=== PATIENT | male | born 1960 | race Caucasian/White ===

== ENCOUNTER 2020-05-06 04:47 | Outpatient (CLI) | payer BC, SELFPAY ==
[2020-05-08 09:12] LABS: SARS-CoV-2 RNA Not Detected (NotDetected); SARS-CoV-2 RNA Source Nasal/Nares
== END 2020-05-06 05:07 ==
PROVIDERS: Visit Provider Family Medicine Adult Medicine
DX: Z01.818 Encounter for other preprocedural examination (principal); Z11.59 Encounter for screening for other viral diseases
CPT/HCPCS: U0003

== ENCOUNTER 2024-03-11 07:19 | Outpatient (CLI) | payer MEDICARE, SELFPAY ==
[2024-03-11 07:39] VITALS: BP 120/71; PULSE 54; RESP 20; TEMP 36.8; O2SAT 96
[2024-03-11 08:05] VITALS: PULSE 57; O2SAT 94
[2024-03-11 08:08] VITALS: BP 159/83; PULSE 55; PULSE 56; RESP 16; O2SAT 97
[2024-03-11 08:10] VITALS: PULSE 58; RESP 17; O2SAT 94
[2024-03-11 08:16] VITALS: BP 151/93; PULSE 52; PULSE 59; RESP 18; O2SAT 96
[2024-03-11 08:20] VITALS: PULSE 53; RESP 16; O2SAT 96
--- NOTE | 2024-03-11 08:27 | PDOC.PAIN ---
Date of service: 03/11/24 Time of Service: 08:27 Pain Managment Procedure Note Procedure Note Procedure Note: PROCEDURE NOTE Bilateral Lumbar Medial Branch Blocks Date of Service: March 11, 2024 Patient: RAYNE FUENTES Provider: Tomasa Diop DO, MPH RAYNE Keo FUENTES has been [facility] for lumbar medial branch blocks. Pre-operative diagnosis: Lumbar Spondylosis without Myelopathy ICD-10 M47.816 Post-operative diagnosis: Same Pre-procedure pain: VAS= 7/10 COMMENTS: I previously evaluated him in the office and his pain is the same. ANITA was interviewed and the medical records were reviewed. There were no medical, pharmacologic, radiographic or other structural contraindications to attempting fluoroscopically guided local anesthetic lumbar medial branch blocks. Risks and potential side effects were discussed. I also discussed the potential benefit(s) of the procedure with RAYNE, and voiced concerns were addressed. After RAYNE was completely informed about the procedure, the printed consent form was signed. A standard time-out procedure was performed. RAYNE was placed in the prone position on the fluoroscopy table. Automated blood pressure cuff and pulse oximeter were applied. The skin entry points for approaching the anatomic target points of the segmental medial branches of bilateral L3,L4,L5 were identified with fluoroscopy and marked. The skin at the target site area was thoroughly prepared with Chlorhexadine. The skin was then draped. Next, a 25 gauge 3.5 spinal needle was placed under fluoroscopic guidance down on to the target point (the articular pillar) for each respective segmental medial branch. Position was confirmed in A/P and lateral views. Aspiration revealed no blood or clear fluid. Next, 0.25ml of omnipaque 240 was injected at each level. No contrast following a vascular or neural pattern was visualized under continuous fluoroscopy. Next, 0.25 ml of preservative-free 0.5% bupivicaine was injected at each level. There was no unusual discomfort expressed by RAYNE. The needles were withdrawn without difficulty. (49 mls of Omnipaque was wasted) RAYNE was observed and was without hemodynamic, neurologic, or allergic reactions.? Fluoroscopic images were digitally archived. Provacative testing using the Modified Garcia's facet loading test- Left side Right Side Directly before the block VAS (0-10) = 7/10 VAS (0-10) = 7/10 Five minutes after the block VAS (0-10) = 0/10 VAS (0-10) = 0/10 Percentage relief obtained with this diagnostic block 100% 100% Any improved physical functioning directly after the blocks? Able to move his back without pain. Follow up plans and appointments were discussed with RAYNE. RAYNE was instructed to keep careful note of how the usual pain was modified by these injections. Specifically, to keep a pain diary for the next 4 hours using a numeric pain scale of 0-10 and report these results. Post procedure instruction was given as documented in the nursing documentation and having met discharge criteria, the patient was [facility]. Based on the medial branches blocked today, if they patient has adequate relief and we are able to proceed to radiofrequency ablation, the treatment should result in the denervation of the bilateral L4-L5 and L5-S1 facet joints. We would expect to denervate a total of 4 facets during the radiofrequency ablation. COMMENTS: No apparent complications. Post-procedure pain: VAS= 0/10 RAYNE will call back with 0-4 hour post-procedure pain scores. I personally performed the entire procedure. TOMASA DIOP DO, MPH ABPM&R-subspecialty board certification in Pain Medicine [facility] [facility]
--- NOTE | 2024-03-11 08:29 | DI.RAD_ITS ---
Exam(s) XR PAIN CLINIC LUMBAR SP 2V EXAM: XR PAIN CLINIC LUMBAR SP 2V CLINICAL HISTORY: DX: Lumbar Spondylosis TECHNIQUE: 2D and realtime digital imaging was performed. CONTRAST MATERIAL: Refer to procedure report. COMPARISON: No exams were available for comparison FINDINGS: Fluoroscopy was provided for Dr. Diop during the performance of a lumbar medial branch block. Roma frederick refer to the procedure report for complete details. Ka,r=17.8 mGy IMPRESSION: RADIATION DOSE DELIVERED: 0.0 0.0 0
[2024-03-11] MEDS: Bupivacaine 0.5% Pres-Free 10 ML VIAL IJ (08:33)
[2024-03-11] MEDS: Nerve Block Tray 1 EACH MC (08:33)
[2024-03-11] MEDS: Omnipaque 240 MG/ML 50 ML BTL IJ (08:33)
== END 2024-03-11 07:20 | disposition home or self-care (01) ==
PROVIDERS: PCP Family Medicine Adult Medicine; Visit Provider Preventive Medicine Occupational Medicine
DX: M54.50 Low back pain, unspecified (principal); M47.816 Spondylosis without myelopathy or radiculopathy, lumbar region
CPT/HCPCS: 64493; 64494; 72100; J0665; Q9967

== ENCOUNTER 2024-03-25 07:39 | Outpatient (CLI) | payer MEDICARE, SELFPAY ==
[2024-03-25] VITALS (8 sets, daily range): BP systolic 136–148; BP diastolic 76–88; PULSE 55–64; RESP 17–21; TEMP 36.3; O2SAT 96–98
--- NOTE | 2024-03-25 06:00 | DI.RAD_ITS ---
Exam(s) XR PAIN CLINIC LUMBAR SP 2V EXAM: XR PAIN CLINIC LUMBAR SP 2V CLINICAL HISTORY: DX: Lumbar Spondylosis TECHNIQUE: 2D and realtime digital imaging was performed. CONTRAST MATERIAL: Refer to procedure report. COMPARISON: No exams were available for comparison FINDINGS: Fluoroscopy was provided for Dr. Diop during the performance of a lumbar medial branch block. Roma frederick refer to the procedure report for complete details. Ka,r=17.3 mGy IMPRESSION: RADIATION DOSE DELIVERED: 0.0 0.0 0
--- NOTE | 2024-03-25 08:41 | PDOC.PAIN_ITS ---
Date of service: 03/25/24 Time of Service: 08:41 Pain Managment Procedure Note Procedure Note Procedure Note: PROCEDURE NOTE Bilateral Lumbar Medial Branch Blocks Date of Service: March 25, 2024 Patient: RAYNE FUENTES Provider: Tee Cage DO, MPH RAYNE Crowley GINA has been referred to the [facility] for lumbar medial branch blocks. Pre-operative diagnosis: Lumbar Spondylosis without Myelopathy ICD-10 M47.816 Post-operative diagnosis: Same Pre-procedure pain: VAS= 6-7/10 to the low back with activity COMMENTS: he did do very well with the first LMBB RAYNE? was interviewed and the medical records were reviewed. There were no medical, pharmacologic, radiographic or other structural contraindications to attempting fluoroscopically guided local anesthetic lumbar medial branch blocks. Risks and potential side effects were discussed. I also discussed the potential benefit(s) of the procedure with RAYNE, and voiced concerns were addressed. After RAYNE was completely informed about the procedure, the printed consent form was signed. A standard time-out procedure was performed. RAYNE was placed in the prone position on the fluoroscopy table. Automated blood pressure cuff and pulse oximeter were applied. The skin entry points for approaching the anatomic target points of the segmental medial branches of bilateral L3,L4,L5 were identified with fluoroscopy and marked. The skin at the target site area was thoroughly prepared with Chlorhexadine. The skin was then draped. Next, a 25 gauge 3.5 spinal needle was placed under fluoroscopic guidance down on to the target point (the articular pillar) for each respective segmental medial branch. Position was confirmed in A/P and lateral views. Aspiration revealed no blood or clear fluid. Next, 0.25ml of omnipaque 240 was injected at each level. No contrast following a vascular or neural pattern was visualized under continuous fluoroscopy. Next, 0.25 ml of preservative-free 0.5% bupivicaine was injected at each level. There was no unusual discomfort expressed by RAYNE. The needles were withdrawn without difficulty. (49 mls of Omnipaque was wasted) RAYNE was observed and was without hemodynamic, neurologic, or allergic reactions.? Fluoroscopic images were digitally archived. Provacative testing using the Modified Garcia's facet loading test- Left side Right Side Directly before the block VAS (0-10) = 7/10 VAS (0-10) = 7/10 Five minutes after the block VAS (0-10) = 0/10 VAS (0-10) = 0/10 Percentage relief obtained with this diagnostic block 100% 100% Any improved physical functioning directly after the blocks? Able to move his back in all directions without pain. Follow up plans and appointments were discussed with RAYNE. RAYNE was instructed to keep careful note of how the usual pain was modified by these injections. Specifically, to keep a pain diary for the next 4 hours using a numeric pain scale of 0-10 and report these results. Post procedure instruction was given as documented in the nursing documentation and having met discharge criteria, the patient was [facility] from the [facility]. Based on the medial branches blocked today, if they patient has adequate relief and we are able to proceed to radiofrequency ablation, the treatment should result in the denervation of the bilateral L4-L5 and L5-S1 facet joints. We would expect to denervate a total of 4 facets during the radiofrequency ablation. COMMENTS: No apparent complications. Post-procedure pain: VAS= 0/10 RAYNE will call back with 0-4 hour post-procedure pain scores. I personally performed the entire procedure. TEE CAGE DO, MPH ABPM&R-subspecialty board certification in Pain Medicine [facility] [facility]
[2024-03-25] MEDS: Nerve Block Tray 1 EACH MC (08:42)
[2024-03-25] MEDS: Omnipaque 240 MG/ML 50 ML BTL IJ (08:42)
[2024-03-25] MEDS: Bupivacaine 0.5% Pres-Free 10 ML VIAL IJ (08:42)
== END 2024-03-25 07:40 | disposition home or self-care (01) ==
LOC: PC 07:39
PROVIDERS: PCP Family Medicine Adult Medicine; Visit Provider Preventive Medicine Occupational Medicine
DX: M54.50 Low back pain, unspecified (principal); M47.816 Spondylosis without myelopathy or radiculopathy, lumbar region
CPT/HCPCS: 64493; 64494; 72100; J0665; Q9967

== ENCOUNTER 2024-06-16 07:33 | Outpatient (CLI) | payer MEDICARE, SELFPAY ==
[2024-06-16] VITALS (13 sets, daily range): BP systolic 127–150; BP diastolic 64–95; PULSE 56–67; RESP 12–21; TEMP 36.7; O2SAT 91–99
--- NOTE | 2024-06-16 06:00 | DI.RAD_ITS ---
Exam(s) XR PAIN CLINIC LUMBAR SP 2V EXAM: XR PAIN CLINIC LUMBAR SP 2V CLINICAL HISTORY: Dx: Lumbar Spondylosis TECHNIQUE: 2D and realtime digital imaging was performed. CONTRAST MATERIAL: Refer to procedure report. COMPARISON: No exams were available for comparison FINDINGS: Fluoroscopy was provided for Dr. Carlisle during the performance of a lumbar radiofrequency ablation. Please refer to the procedure report for complete details. Ka,r=15.7 mGy IMPRESSION: RADIATION DOSE DELIVERED: 0.0 0.0 0
--- NOTE | 2024-06-16 08:02 | PDOC.PAIN ---
Date of service: 06/16/24 Time of Service: 09:12 Pain Managment Procedure Note Procedure Note Procedure Note: Lumbar Medial Branch COOLED Radiofrequency Ablation COMMENT: Patient had greater than 80 % relief after 2 medial branch blocks . ? Location: Bilateral L3, and L4 medial Branches and dorsal ramus of L5 (L4-5, and L5-S1 joints) ? Pre-procedure Diagnosis: M47.817 Spondylosis without myelopathy or radiculopathy, lumbosacral region ? Post-procedure Diagnosis:? The same as above ? Sedation:?Intravenous line started 1mg of intravenous midazolam and fentanyl 50 mcg?were administered. An independent trained observer monitored the patient for the duration of the procedure.? Estimated blood loss:? less than 2 cc ? Surgeon: Moy Carlisle MD ? Procedure Detail:? The procedure and potential risks were explained to the patient and informed written consent was obtained. The patient was escorted to the procedure room and placed in the prone position. Pillows were utilized for proper positioning and comfort. Time out was performed in the procedure room with nursing staff confirming the patient's identity, procedure to be performed, allergies, and any blood thinning or anti-platelet medications. The patient's lower back was prepped with ChloraPrep and draped in a sterile fashion.? Sterile technique was maintained throughout the procedure.? Sterile gloves were used, a face mask was worn, and new single dose vials of all medications were used with the top being swabbed with alcohol and given time to dry prior to withdrawal of medication. A left AND right-sided oblique fluoroscopic view was obtained, with visualization of the L4 junction of the transverse process and superior articular process. 2% lidocaine was used to anesthetize the skin. With fluoroscopic guidance, an 17 gauge curved tip 4mm active tip RF cannula was advanced to the superior margin of the transverse process and lateral to the superior articular process.? It was directed inferiorly and medially so that the tip struck the junction of the base of the transverse process and the superior articular process. The needle was then slightly advanced along the course of the L3 medial branch nerve. Proper placement was verified with oblique, AP, and lateral fluoroscopic views. Sensory tested with good response less than 1V. Motor testing was performed and was negative at 2V except for expected multifidus activation. A similar procedure was also performed at the ipsilateral L4 medial branch nerves and the dorsal ramus of L5 with negative motor testing at 2V except for expected multifidus activation. One cc of 2% lidocaine was injected through each needle tip to anesthetize the medial branch nerves.? After waiting for the local anesthetic to take effect, each nerve was then ablated at 60 degrees Celsius for 150 seconds.? The patient was monitored for any severe pain or radicular pain during the ablation and reported none. The patient tolerated the procedure well, and was discharged in stable condition.? Permanent images were saved and recorded. PAIN: PRE PROCEDURE 10 POST PROCEDURE 010 Plan: F/U PRN COMMENT: Repeat prn if 6 months relief of 50%
[2024-06-16] MEDS: Midazolam 2 MG/2 ML VIAL IVP (08:45)
[2024-06-16] MEDS: fentaNYL 100 MCG/2 ML VIAL IVP (08:45)
[2024-06-16] MEDS: Lidocaine 2% Multi-Dose 20 ML VIAL IJ (09:12)
[2024-06-16] MEDS: Nerve Block Tray 1 EACH MC (09:13)
[2024-06-16] MEDS: Normal Saline Flush 10 ML SYR IVP (09:17)
== END 2024-06-16 07:34 | disposition home or self-care (01) ==
PROVIDERS: PCP Family Medicine Adult Medicine; Visit Provider Anesthesiology Pain Medicine
DX: M54.50 Low back pain, unspecified (principal); M47.817 Spondylosis without myelopathy or radiculopathy, lumbosacral region
CPT/HCPCS: 00123; 64635; 64636; 72100; J2003; J2250; J3010

== ENCOUNTER 2025-01-21 01:35 | Outpatient (CLI) | payer MEDICARE, SELFPAY ==
--- NOTE | 2025-01-21 06:30 | DI.CT_ITS ---
Exam(s) CT SINUS WO EXAM: CT SINUS WO CLINICAL HISTORY: ? chronic/complicated sinusitis,headache,h/o sinusitis,r51.9,z87.09. Evaluate for sinusitis. TECHNIQUE: Imaging Protocol: Axial computed tomography images with coronal and sagittal reformatted images were created and reviewed. COMPARISON: No exams were available for comparison FINDINGS: Frontal sinuses: Mucous retention inferiorly. Ethmoid air cells: No multifocal opacification and mucosal thickening. Maxillary sinuses: Circumferential mucosal thickening bilaterally. Sphenoid sinuses: Normally aerated. Ostiomeatal complexes: Occluded bilaterally. Nasal cavity: Nasal septum is mildly deviated toward the left. Visualized regional soft tissues: No acute findings. Orbits: Unremarkable. Bones: Unremarkable. No bony destruction. Mastoid Air Cells: Normally aerated. Visualized portions of the brain: Unremarkable as visualized. IMPRESSION: Chronic maxillary, frontal and ethmoid sinus disease. RADIATION DOSE DELIVERED: 130.7mGy.cm Total DLP DATA REPOSITORY: All CT scans at this facility are submitted to the National Radiology Data Registry (NRDR) Dose Index Registry (DIR) with the [employer] ([employer]). RADIATION OPTIMIZATION: All CT scans at this facility use at least one of these dose optimization techniques: automated exposure control; mA and/or kV adjustment per patient size (includes targeted exams where dose is matched to clinical indication); or iterative reconstruction.
== END 2025-01-21 01:55 ==
LOC: DI 01:35
PROVIDERS: PCP Family Medicine Adult Medicine; Visit Provider Otolaryngology
DX: J32.0 Chronic maxillary sinusitis (principal); Z87.09 Personal history of other diseases of the respiratory system
CPT/HCPCS: 70486

== ENCOUNTER 2025-02-03 15:00 | Outpatient (CLI) | payer MEDICARE, SELFPAY ==
[2025-02-03 13:01] LABS: ESR 8 mm/hr (0-20)
[2025-02-03 13:28] LABS: C-Reactive Protein < 0.50 mg/dL (<or=0.5)
== END 2025-02-03 15:01 | disposition home or self-care (01) ==
LOC: LBO 15:00
PROVIDERS: PCP Family Medicine Adult Medicine; Visit Provider Otolaryngology
DX: R51.9 Headache, unspecified (principal)
CPT/HCPCS: 36415; 85652; 86140